=== PATIENT | female | born 1965 | race Asian ===

== ENCOUNTER 2021-04-25 08:14 | Outpatient (CLI) | payer SELFPAY ==
[2021-04-25 12:01] LABS: BILIRUBIN,URINE NEGATIVE (NEGATIVE); GLUCOSE, URINE (UA) NEGATIVE (NEGATIVE); KETONES,URINE (UA) NEGATIVE (NEGATIVE); LEUKOCYTE ESTERASE, URINE TRACE (NEGATIVE); NITRITE,URINE NEGATIVE (NEGATIVE); OCCULT BLOOD,URINE SMALL (NEGATIVE); PROTEIN,URINE NEGATIVE (NEGATIVE); UROBILINOGEN,URINE 0.2 (NORMAL) E.U./dL (NORMAL)
[2021-04-25 12:06] LABS: BASOPHILS # (AUTO) 0.1 10^3/uL (0.0-0.1); BASOPHILS % (AUTO) 0.7 %; EOSINOPHILS # (AUTO) 0.3 10^3/uL (0.0-0.7); EOSINOPHILS % (AUTO) 2.7 %; HCT - HEMATOCRIT 37.2 % (37.0-47.0); LYMPHOCYTES # (AUTO) 2.6 10^3/uL (1.5-3.5); LYMPHOCYTES % (AUTO) 25.9 %; MEAN CORPUSCULAR HEMOGLOBIN 32.5 pg (27.0-31.0); MEAN CORPUSCULAR HGB CONC 34.9 g/dL (32.0-36.0); MEAN PLATELET VOLUME 10.3 fL (7.9-10.8); MONOCYTES # (AUTO) 0.9 10^3/uL (0.0-1.0); MONOCYTES % (AUTO) 8.7 %; NEUTROPHILS # (AUTO) 6.1 10^3/uL (1.5-6.6); NEUTROPHILS % (AUTO) 61.6 %; PLT - PLATELET COUNT 309 10^3/uL (130-450); RED CELL DISTRIBUTION WIDTH 13.7 % (12.0-15.0); WHITE BLOOD COUNT 9.9 x10^3/uL (4.8-10.8)
[2021-04-25 12:11] LABS: BACTERIA,URINE Moderate /HPF (None Seen); CLARITY,URINE CLEAR (CLEAR); RBC,URINE 0-5 /HPF (0-5); SQUAMOUS EPITHELIAL CELL,UR FEW Squamous (<= Few)
[2021-04-25 12:13] LABS: ALBUMIN 4.2 g/dL (3.2-5.5); ALBUMIN/GLOBULIN RATIO 1.1 (1.0-2.2); ALKALINE PHOSPHATASE 70 IU/L (42-121); ALT ALANINE AMINOTRANSFERASE 28 IU/L (10-60); AST ASPARTATE AMINOTRANSFERASE 19 IU/L (10-42); BILIRUBIN,TOTAL 0.5 mg/dL (0.2-1.0); BUN - BLOOD UREA NITROGEN 24 mg/dL (6-20); CALCIUM 8.9 mg/dL (8.5-10.3); CARBON DIOXIDE - CO2 29 mmol/L (21-32); CHLORIDE 104 mmol/L (101-111); CHOL/HDL RATIO 3.6 (<4.4); CHOLESTEROL 206 mg/dL; CREATININE 1.1 mg/dL (0.4-1.0); GFR - MDRD 52 (>89); GLUCOSE 110 mg/dL (70-100); HDL CHOLESTEROL 58 mg/dL; LDL CHOLESTEROL,CALCULATED 131 mg/dL; LDL/HDL RATIO 2.3 (<4.4); POTASSIUM 3.8 mmol/L (3.5-5.0); SODIUM 140 mmol/L (135-145); TRIGLYCERIDES 87 mg/dL; VLDL CHOLESTEROL 17 mg/dL
[2021-04-25 12:18] LABS: THYROID STIMULATING HORMONE 1.74 uIU/mL (0.34-5.60)
== END 2021-04-25 23:59 | disposition home or self-care (01) ==
LOC: LAB.WCP 08:14
PROVIDERS: ATTEND Family Medicine
DX: R31.9 Hematuria, unspecified (principal); F17.210 Nicotine dependence, cigarettes, uncomplicated; I10 Essential (primary) hypertension
CPT/HCPCS: 36415; 80053; 80061; 81001; 83721; 84443; 85025

== ENCOUNTER 2023-10-21 08:00 | Outpatient (CLI) | payer BC ==
[2023-10-21 19:08] LABS: FECAL OCCULT BLOOD (FIT) NEGATIVE (NEGATIVE)
== END 2023-10-21 23:59 | disposition home or self-care (01) ==
LOC: LAB.R 08:00
PROVIDERS: ATTEND Family Medicine
DX: Z12.11 Encounter for screening for malignant neoplasm of colon (principal)
CPT/HCPCS: 82274

== ENCOUNTER 2023-10-21 13:01 | Outpatient (CLI) | payer BC ==
--- NOTE | 2023-10-22 15:36 | Mammography Report ---
BILATERAL DIGITAL SCREENING MAMMOGRAM 3D/2D: 10/21/2023 CLINICAL: Baseline exam. Routine screening. No prior exams were available for comparison. Both breasts are heterogeneously dense, which may obscure small masses (category c / 51-75% glandular tissue). There is a possible irregular focal asymmetry in the right breast at 1 o'clock middle depth. There is a possible irregular focal asymmetry in the left breast at 10 o'clock middle depth. No other significant masses or calcifications are seen in either breast. IMPRESSION: INCOMPLETE: NEEDS ADDITIONAL IMAGING EVALUATION The possible irregular focal asymmetry in the right breast at 1 o'clock middle depth is indeterminate . Additional views with possible ultrasound are recommended. The possible irregular focal asymmetry in the left breast at 10 o'clock middle depth is indeterminate . Additional views with possible ultrasound are recommended. Based on the Tyrer Cuzick model (a risk assessment model) the patients lifetime risk is 6.5% and her 10 year risk is 2.1%. According to the ACR, ACS, and NCCN guidelines, an annual breast MRI exam sobia g with mammogram is recommended if the patients lifetime risk is 20% or greater. This exam was interpreted at Station ID: [id number]. NOTE: For mammograms, a report in lay terms will be sent to the patient. Approximately 15% of breast malignancies will not be visualized mammographically. In the management of a palpable breast mass, a negative mammogram must not discourage biopsy of a clinically suspicious lesion. Electronically Signed By: Mikal khan/yazmin:10/21/2023 16:47:00 ACR BI-RADS Category 0: Incomplete 3340F PARENCHYMAL PATTERN: (D) - The breast(s) demonstrate(s) heterogeneously dense fibroglandular parenchy ma. BI-RADS CATEGORY: (0) - 0 Mammo and [place] [id number] Immediate follow-up LATERALITY: (B)
== END 2023-10-21 13:02 | disposition home or self-care (01) ==
LOC: DI.N 13:01
DX: Z12.31 Encounter for screening mammogram for malignant neoplasm of breast (principal); R92.8 Other abnormal and inconclusive findings on diagnostic imaging of breast; R92.333 Mammographic heterogeneous density, bilateral breasts

== ENCOUNTER 2023-11-28 12:12 | Outpatient (CLI) | payer BC ==
--- NOTE | 2023-12-03 12:58 | Ultrasound Report ---
LIMITED ULTRASOUND OF LEFT BREAST: 11/28/2023 CLINICAL: Patient returns today to evaluate an asymmetry in the left breast. Comparison is made to exams dated: 11/28/2023 mammogram and 10/21/2023 mammogram - [facility]. Color flow and real-time ultrasound of the left breast 10 o'clock region were performed. Meza scale images of the real-time examination were reviewed. Questionable hypoechoic artifact vs. small mass at 10:00 measuring 5 x 9 x 3mm. IMPRESSION: PROBABLY BENIGN Questionable hypoechoic artifact vs. small mass at 10:00 measuring 5 x 9 x 3mm. at the same location as the mammographic focal asymmetry. These are probably benign. A follow-up mammogram and an ultrasound in 6 months is recommended to demonstrate stability. This exam was interpreted at Station ID: [id number]. Electronically Signed By: Federico Mclaughlin M.D. lc/:11/28/2023 14:05:21 Ultrasound BI-RADS: 3 Probably benign BI-RADS CATEGORY: (3) - 3 Mammo and [place] [id number] 6 month follow-up LATERALITY: (B)
--- NOTE | 2023-12-03 12:58 | Mammography Report ---
BILATERAL DIGITAL DIAGNOSTIC MAMMOGRAM 3D/2D WITH SPOT COMPRESSION: 11/28/2023 CLINICAL: Patient returns today to evaluate asymmetries in bilateral breasts. Comparison is made to exam dated: 10/21/2023 mammogram - [facility]. Both breasts are heterogeneously dense, which may obscure small masses (category c / 51-75% glandular tissue). There is a possible irregular focal asymmetry in the right breast at 1 o'clock middle depth. There is a possible irregular focal asymmetry in the left breast at 10 o'clock middle depth. No other significant masses or calcifications are seen in either breast. IMPRESSION: INCOMPLETE: NEEDS ADDITIONAL IMAGING EVALUATION The possible irregular focal asymmetry in the right breast at 1 o'clock middle depth is indeterminate . An ultrasound is recommended. The possible irregular focal asymmetry in the left breast at 10 o'clock middle depth is indeterminate . An ultrasound is recommended. Based on the Tyrer Cuzick model (a risk assessment model) the patients lifetime risk is 6.5% and her 10 year risk is 2.1%. According to the ACR, ACS, and NCCN guidelines, an annual breast MRI exam sobia g with mammogram is recommended if the patients lifetime risk is 20% or greater. This exam was interpreted at Station ID: [id number]. NOTE: For mammograms, a report in lay terms will be sent to the patient. Approximately 15% of breast malignancies will not be visualized mammographically. In the management of a palpable breast mass, a negative mammogram must not discourage biopsy of a clinically suspicious lesion. Electronically Signed By: Federico Mclaughlin M.D. lc/:11/28/2023 14:02:22 ACR BI-RADS Category 0: Incomplete 3340F PARENCHYMAL PATTERN: (D) - The breast(s) demonstrate(s) heterogeneously dense fibroglandular parvanessa jane. BI-RADS CATEGORY: (0) - 0 Ultrasound [id number] Immediate follow-up LATERALITY: (B)
--- NOTE | 2023-12-03 12:59 | Ultrasound Report ---
LIMITED ULTRASOUND OF RIGHT BREAST: 11/28/2023 CLINICAL: Patient returns today to evaluate a focal asymmetry in the right breast. Comparison is made to exams dated: 11/28/2023 mammogram, 11/28/2023 ultrasound, and 10/21/[address] [facility]. Real-time ultrasound of the right breast 1 o'clock region was performed. Meza scale images of the re al-time examination were reviewed. No sonographic findings. IMPRESSION: PROBABLY BENIGN There is no abnormality seen in the right breast to correspond with the mammography finding. A follow-up mammogram and an ultrasound in 6 months is recommended to demonstrate stability of the ma mmographic focal asymmetry. This exam was interpreted at Station ID: [id number]. Electronically Signed By: Federico Mclaughlin M.D. lc/:11/28/2023 14:03:31 Ultrasound BI-RADS: 3 Probably benign BI-RADS CATEGORY: (3) - 3 Mammo and [place] [id number] 6 month follow-up LATERALITY: (B)
== END 2023-11-28 12:13 | disposition home or self-care (01) ==
LOC: DI 12:12
PROVIDERS: ATTEND Internal Medicine
DX: R92.8 Other abnormal and inconclusive findings on diagnostic imaging of breast (principal); R92.333 Mammographic heterogeneous density, bilateral breasts

== ENCOUNTER 2024-01-28 08:18 | Outpatient (CLI) | payer BC ==
[2024-01-28 08:29] LABS: BASOPHILS # (AUTO) 0.1 10^3/uL (0.0-0.1); BASOPHILS % (AUTO) 0.9 %; EOSINOPHILS # (AUTO) 0.2 10^3/uL (0.0-0.7); EOSINOPHILS % (AUTO) 2.8 %; HCT - HEMATOCRIT 38.6 % (37.0-47.0); HGB - HEMOGLOBIN 13.8 g/dL (12.0-16.0); LYMPHOCYTES % (AUTO) 23.4 %; MEAN CORPUSCULAR HEMOGLOBIN 32.9 pg (27.0-31.0); MEAN CORPUSCULAR HGB CONC 35.8 g/dL (32.0-36.0); MEAN CORPUSCULAR VOLUME 92.1 fL (81.0-99.0); MEAN PLATELET VOLUME 9.2 fL (7.9-10.8); MONOCYTES # (AUTO) 0.8 10^3/uL (0.0-1.0); MONOCYTES % (AUTO) 8.8 %; NEUTROPHILS # (AUTO) 5.4 10^3/uL (1.5-6.6); NEUTROPHILS % (AUTO) 63.7 %; PLT - PLATELET COUNT 307 10^3/uL (130-450); RED BLOOD COUNT 4.19 10^6/uL (4.20-5.40); WHITE BLOOD COUNT 8.5 x10^3/uL (4.8-10.8)
[2024-01-28 08:57] LABS: ALBUMIN 4.4 g/dL (3.2-5.5); ALBUMIN/GLOBULIN RATIO 1.2 (1.0-2.2); ALKALINE PHOSPHATASE 71 IU/L (42-121); ALT ALANINE AMINOTRANSFERASE 47 IU/L (10-60); AST ASPARTATE AMINOTRANSFERASE 24 IU/L (10-42); BILIRUBIN,TOTAL 0.6 mg/dL (0.2-1.0); BUN - BLOOD UREA NITROGEN 18 mg/dL (6-20); CALCIUM 9.9 mg/dL (8.5-10.3); CARBON DIOXIDE - CO2 31 mmol/L (21-32); CHLORIDE 103 mmol/L (101-111); CHOL/HDL RATIO 2.9 (<4.4); CHOLESTEROL 195 mg/dL; CREATININE 0.9 mg/dL (0.6-1.3); GFR - MDRD 65 (>89); GLUCOSE 100 mg/dL (74-104); HDL CHOLESTEROL 67 mg/dL; LDL CHOLESTEROL,CALCULATED 99 mg/dL; LDL/HDL RATIO 1.5 (<4.4); POTASSIUM 3.9 mmol/L (3.5-4.5); SODIUM 139 mmol/L (135-145); TOTAL PROTEIN 8.2 g/dL (6.4-8.9); TRIGLYCERIDES 145 mg/dL (48-352); VLDL CHOLESTEROL 29 mg/dL
[2024-01-28 09:12] LABS: THYROID STIMULATING HORMONE 1.38 uIU/mL (0.34-5.60)
[2024-01-28 10:26] LABS: ESTIMATED AVERAGE GLUCOSE 82 mg/dL (70-100); HEMOGLOBIN A1c% 4.5 % (4.27-6.07)
== END 2024-01-28 08:19 | disposition home or self-care (01) ==
LOC: LAB 08:18
PROVIDERS: ATTEND Physician Assistant
DX: I10 Essential (primary) hypertension (principal); Z13.220 Encounter for screening for lipoid disorders; R73.9 Hyperglycemia, unspecified
CPT/HCPCS: 36415; 80053; 80061; 83036; 83721; 84443; 85025